=== PATIENT | male | born 1950 | race Caucasian/White ===

== ENCOUNTER → 2017-02-07 | Outpatient (CLI) | payer MEDICARE, OTHER ==
[~2017-02-07] MED LIST: ONABOTULINUM TOXIN A 100 UNIT IM ONE; SALINE FLUSH 10ml SYRINGE IVF ONE
== END ==
LOC: NEU 09:44
PROVIDERS: ATTEND Psychiatry & Neurology Neurology
DX: G24.3 Spasmodic torticollis (principal)
CPT/HCPCS: 64616; 95874; J0585